=== PATIENT | female | born 1975 | race Caucasian/White ===

== ENCOUNTER → 2019-12-29 09:14 | Outpatient (BNVA) | payer OTHER, SELFPAY | PROVIDERS: PCP Physician Assistant Medical; Visit Provider Student in an Organized Health Care Education/Training Program | DX: M25.50 Pain in unspecified joint (principal); M79.602 Pain in left arm; M79.605 Pain in left leg; E55.9 Vitamin D deficiency, unspecified | CPT/HCPCS: 99214 ==

== ENCOUNTER 2020-10-10 14:40 | Emergency (ER) | payer OTHER, SELFPAY ==
[2020-10-10 15:36] VITALS: BP 113/75; PULSE 98; RESP 18; TEMP 37; O2SAT 100; BMI 35.3
--- NOTE | 2020-10-10 16:49 | ED_ITS ---
HPI - Back Pain/Injury General Chief Complaint: Extremity Injury, Lower Stated Complaint: Rt leg pain Time Seen by Provider: 10/10/20 16:49 Source: patient Mode of arrival: ambulatory Limitations: no limitations History of Present Illness HPI Narrative: 45 y/o female with history of polyarthralgia (seen by Rheum with negative connective tissue disease workup in the past), chronic low back pain who presents with worsening nontraumatic pain for the last 2 weeks. She reports the pain starts in her left lower back and buttock area and radiates down the back of her leg. It is causing her not to sleep well at home. She is taking Tylenol and Gababpentin with only mild improvement. She saw her PCP who referred her to a specialist who she has not seen yet. She had a MRI of her lower back in the past that she reports showed some disc disease. She has no weakness, numbness, tingling. No fevers. MD elicited complaint: back pain Pertinent past history: prior back pain Onset (ago): week(s) (2) Timing: constant Similar Symptoms Previously: Yes Quality: sharp Location: left lower back Radiation: left upper leg Exacerbating factors: movement Relieving factors: immobilization Context: unknown Associated symptoms: difficulty walking Treatments prior to arrival: acetaminophen Work related injury: No Related Data Home Medications Medication Instructions Recorded Confirmed acetaminophen 500 mg tablet 500 mg PO Q6H PRN 12/29/19 (Tylenol Extra Strength) albuterol sulfate 2.5 mg INHALATION Q4H PRN 12/29/19 epinephrine 0.3 mg/0.3 mL 0.3 mg IM Q10M PRN 12/29/19 injection, auto-injector fluticasone furoate 200 1 inh INHALATION DAILY 12/29/19 mcg-vilanterol 25 mcg/dose inhalation powder (Breo Ellipta) gabapentin 800 mg tablet 800 mg PO DAILY 12/29/19 hydrochlorothiazide 25 mg tablet 25 mg PO DAILY 12/29/19 linaclotide 290 mcg capsule 290 mcg PO DAILY 12/29/19 (Linzess) loratadine 10 mg tablet (Allergy 10 mg PO DAILY 12/29/19 Relief (loratadine)) metoprolol tartrate 50 mg tablet 50 mg PO BID 12/29/19 montelukast 10 mg tablet 10 mg PO DAILY 12/29/19 ondansetron HCl 4 mg tablet 4 mg PO Q6H PRN 10/15/20 pantoprazole 40 mg tablet,delayed 40 mg PO DAILY 12/29/19 release prednisone 5 mg tablet 5 mg PO DAILY 12/29/19 tramadol 50 mg tablet 50 mg PO Q6H PRN 12/29/19 Previous Rx's Medication Instructions Recorded cyclobenzaprine 10 mg tablet 10 mg PO TID PRN #10 tab 10/10/20 lidocaine 5 % topical patch 1 patch TOPICAL DAILY #15 ea 10/10/20 (Lidoderm) oxycodone 5 mg tablet 5 mg PO Q8H PRN #5 tab 10/10/20 prednisone 20 mg tablet 40 mg PO DAILY #10 tab 10/10/20 Allergies Allergy/AdvReac Type Severity Reaction Status Date / Time aspirin [ASA] Allergy Severe ANAPHYLAXIS Verified 10/10/20 15:36 butalbital [From FIORICET] Allergy Severe ANAPHYLAXIS Verified 10/10/20 15:36 diazepam [DIAZEPAM] Allergy Severe ANAPHYLAXIS Verified 10/10/20 15:36 ibuprofen [From MOTRIN] Allergy Severe ANAPHYLAXIS Verified 10/10/20 15:36 levofloxacin [From LEVAQUIN] Allergy Severe ANAPHYLAXIS Verified 10/10/20 15:36 shellfish derived Allergy Severe ANAPHYLAXIS Verified 10/10/20 15:36 [SHELLFISH DERIVED] cyclobenzaprine Allergy Mild UNKNOWN Verified 10/10/20 15:36 [From FLEXERIL] acetaminophen [Fioricet] Allergy Unknown Unknown Verified 10/10/20 15:36 ampicillin [AMPICILLIN] Allergy Unknown UNKNOWN Verified 10/10/20 15:36 caffeine [Fioricet] Allergy Unknown unknown Verified 10/10/20 15:36 Aspir-81 Allergy Mild Unknown Uncoded 10/10/20 15:36 Clindamycin HCl Allergy Mild Rash Uncoded 10/10/20 15:36 Motrin Allergy Mild Unknown Uncoded 10/10/20 15:36 milk Allergy Unknown unknown Uncoded 12/29/19 09:37 shellfish Allergy Unknown Unknown Uncoded 12/29/19 09:37 stawberry Allergy Unknown Unknown Uncoded 12/29/19 09:37 Review of Systems Constitutional: Constitutional: Denies chills, Reports difficulty sleeping and Denies fever(s) Cardiovascular: Cardiovascular: Denies chest pain and Denies leg edema Gastrointestinal: Gastrointestinal: Denies abdominal pain Genitourinary: Genitourinary: Denies difficulty voiding, Denies urinary incontinence and Denies urinary urgency Musculoskeletal: Musculoskeletal: Reports abnormal gait, Reports back pain, Reports myalgias and Denies joint swelling Neurologic: Reports abnormal gait and Denies paresthesias [facility] Past Medical History Attestation statement: The following information was validated with the patient. Medical History Asthma Hypertension Leg pain Migraines Tachycardia Uterine prolapse Surgical History H/O: hysterectomy Social History Social History (Updated 12/29/19 @ 09:26 by Leonardo Weber LPN) Household Members: Family Housing: House Alcohol intake: never Advance Directives: No Advance Directives Information Provided: Yes Patient : No Physical Exam Vital Signs: Vital Signs: Last Vital Signs Temp 98.6 F 10/10/20 15:36 Pulse 98 10/10/20 15:36 Resp 18 10/10/20 15:36 BP 113/75 10/10/20 15:36 Pulse Ox 100 10/10/20 15:36 Body Mass Index 35.3 Const: General: cooperative, healthy appearing, comfortable and no acute distress HENMT: Head: Yes normal to inspection Ears: hearing grossly normal bilaterally General nose exam: Normal external nose present Face and sinus: Yes normal facial exam Eyes: General: appearance normal, both eyes and all related structures Neck: Neck: Yes normal visual inspection Chest: Chest palpation & inspection: normal inspection of the chest Resp: Effort & Inspection: normal respiratory effort and able to speak in complete sentences GI: Inspection: Yes normal to inspection Palpation (GI): Soft to palpation and nontender : General: Yes no CVA tenderness Back/Spine/Pelvis: Back: no CVA tenderness and back tenderness Cervical Spine: normal cervical lordosis Thoracic/Lumbar Spine: thoracic and lumbar spine normal to inspection Pelvis: buttock tenderness on the left Sacroiliac joints: on the left tender to palpation and by passive hyperextension of lower ext Sacrum: no tenderness Coccyx: no tenderness Skin: General skin exam: no rashes or lesions noted Neuro: Cognition (Neuro): normal cognition Gait exam (Neuro): Antalgic gait present Motor exam (neuro): 5/5 motor strength present throughout Extrem: General: Yes normal to inspection Course Course Course Narrative: 45 y/o female presenting with acute on chronic low back pain. Clinical presentation and symptoms are consistent with sciatica. She is due to see a specialist for this soon. She has no red flag symptoms of LBP. She has been taking Tylenol and Gababpentin with little relief. Cannot take NSAIDS. Will treat with short course of prednisone, Flexeril and lidoderm. PRN oxycodone for severe pain and night not allowing her to sleep. She was encouraged to follow up with her PCP again for further management and possible PT referral. She agrees with plan. Stable for d/c home. Discharge Plan Discharge Clinical Impression: Sciatica of left side Patient Disposition: Home, Self-Care Instructions: Sciatica (ED), Lower Back Exercises (ED) Additional Instructions: No bending, lifting or twisting. Use ice several times per day for 20 minutes at a time for the next 48 hours and then change to heat. Take medications as prescribed to help with pain and discomfort. Follow up with your Primary Care Doctor this week as well as the specialist they referred you to. If your pain worsens, if you develop new numbness, tingling, weakness, loss of function or incontinence call 911 or come back to the ER right away for evaluation. Prescriptions: New prednisone 20 mg tablet 40 mg PO DAILY Qty: 10 RF: 0 lidocaine [Lidoderm] 5 % adhesive patch,medicated 1 patch topical DAILY Qty: 15 RF: 0 cyclobenzaprine 10 mg tablet 10 mg PO TID PRN (Reason: muscle spasm) Qty: 10 RF: 0 oxycodone 5 mg tablet 5 mg PO Q8H PRN (Reason: pain) Qty: 5 RF: 0 No Action metoprolol tartrate 50 mg tablet 50 mg PO BID RF: 0 gabapentin 800 mg tablet 800 mg PO DAILY RF: 0 prednisone 5 mg tablet 5 mg PO DAILY RF: 0 pantoprazole 40 mg tablet,delayed release (DR/EC) 40 mg PO DAILY RF: 0 Linzess 290 mcg capsule 290 mcg PO DAILY RF: 0 loratadine [Allergy Relief (loratadine)] 10 mg tablet 10 mg PO DAILY RF: 0 montelukast 10 mg tablet 10 mg PO DAILY RF: 0 albuterol sulfate 2.5 mg /3 mL (0.083 %) solution for nebulization 2.5 mg inhalation Q4H PRNRF: 0 Breo Ellipta 200-25 mcg/dose blister with device 1 inh inhalation DAILY RF: 0 epinephrine 0.3 mg/0.3 mL auto-injector 0.3 mg IM Q10M PRNRF: 0 hydrochlorothiazide 25 mg tablet 25 mg PO DAILY RF: 0 tramadol 50 mg tablet 50 mg PO Q6H PRNRF: 0 ondansetron HCl 4 mg tablet 4 mg PO Q6H PRNRF: 0 acetaminophen [Tylenol Extra Strength] 500 mg tablet 500 mg PO Q6H PRNRF: 0 Interventions: ED Discharge Assessment Last Done: 10/10/20 17:20 Discharge Date/Time: 10/10/20 17:23 Print Language: Samoan
== END 2020-10-10 17:23 | disposition home or self-care (01) ==
PROVIDERS: Emergency Provider Emergency Medicine Emergency Medical Services; PCP Physician Assistant Medical
DX: M54.42 Lumbago with sciatica, left side (principal); I10 Essential (primary) hypertension
CPT/HCPCS: 99283

== ENCOUNTER 2020-11-15 13:27 | Outpatient (REF) | payer OTHER, SELFPAY ==
--- NOTE | ~2020-11-15 | MM_ITS ---
EXAMINATION: MM SCREENING DIGITAL BREAST TOMOSYNTHESIS, BILATERAL CLINICAL INFORMATION: Screening. Asymptomatic. The lifetime risk of breast cancer based on the Tyrer-Cuzick Model is 6%. COMPARISON: Outside mammography: 07/28/2018 ([facility]). TECHNIQUE: Digital breast tomosynthesis is performed in both the craniocaudal and mediolateral oblique views along with computer-aided detection (CAD). Synthesized 2D images are generated from the tomosynthesis. FINDINGS: There are scattered areas of fibroglandular density (ACR BI-RADS breast composition Category b). Breast tissue composition borders on predominantly fatty. Background stromal markings are stable. There is a small stable circumscribed nodule 1:00 position right breast, similar to prior exam. There is no significant mass or architectural abnormality or abnormal calcific lesions. The axilla and skin contours are unremarkable. MM/MM tomosynthesis screening BI IMPRESSION: No mammographic evidence of malignancy. ASSESSMENT: BI-RADS 2: Benign RECOMMENDATION: Routine annual mammography screening. This patient's information was entered into a reminder system with a target due date for their next mammogram.
== END 2020-11-15 13:28 | disposition home or self-care (01) ==
LOC: HO.MAMMO 13:27
PROVIDERS: PCP Physician Assistant Medical; Visit Provider Physician Assistant Medical
DX: Z12.31 Encounter for screening mammogram for malignant neoplasm of breast (principal)
CPT/HCPCS: 77063; 77067

== ENCOUNTER 2021-06-17 09:04 | Day surgery (SDC) | payer OTHER, SELFPAY ==
--- NOTE | 2021-06-13 14:30 | MHC.SHP ---
Pre-Procedural Eval Section A Date of Service: 06/13/21 The patient is an INPATIENT: No Changes since office visit: No Cold of Flu in the past 2 weeks, No New Medical Problems, No Changes in Medication and No Patient answered all questions The History & Physical has been completed within 30 days and I have reviewed it.: Yes Section B Chief Complaint: pterygium Allergies: Allergies Allergy/AdvReac Type Severity Reaction Status Date / Time aspirin [ASA] Allergy Severe ANAPHYLAXIS Verified 06/11/21 15:03 butalbital [From FIORICET] Allergy Severe ANAPHYLAXIS Verified 06/11/21 15:03 diazepam [DIAZEPAM] Allergy Severe ANAPHYLAXIS Verified 06/11/21 15:03 ibuprofen [From MOTRIN] Allergy Severe ANAPHYLAXIS Verified 06/11/21 15:03 levofloxacin [From LEVAQUIN] Allergy Severe ANAPHYLAXIS Verified 06/11/21 15:03 shellfish derived Allergy Severe ANAPHYLAXIS Verified 06/11/21 15:03 [SHELLFISH DERIVED] cyclobenzaprine Allergy Mild UNKNOWN Verified 06/11/21 15:03 [From FLEXERIL] ampicillin [AMPICILLIN] Allergy Unknown UNKNOWN Verified 06/11/21 15:03 caffeine [Fioricet] Allergy Unknown unknown Verified 06/11/21 15:03 Clindamycin HCl Allergy Mild Rash Uncoded 06/11/21 15:03 milk Allergy Unknown unknown Uncoded 06/11/21 15:03 stawberry Allergy Unknown Unknown Uncoded 06/11/21 15:03 Plan Diagnosis/Plan: Unchanged I have reviewed the history and physical and performed a pertinent physical examination on my patient. No changes have occurred unless specified.
[2021-06-13 15:11] VITALS: BMI 33.4
--- NOTE | 2021-06-14 10:44 | HO.ANESPROP2 ---
Documented by User: Lynn Lezama NP 06/14/21 10:47 HPI - Anesthesia Eval Consult details Narrative: 45yo F for Left PTERYGIUM EXCISION PCP cleared *Multiple Med Allergies* PMFSH Active Problems Active Problems: All Active Problems (Updated 06/13/21 @ 15:03 by Flori Ospina, RN) Polyarthralgia (Acute) Past Medical History Medical History (Updated 06/13/21 @ 15:03 by Flori Ospina, RN) Anxiety and depression Asthma Dysphagia Frequent headaches GERD (gastroesophageal reflux disease) Hiatal hernia Hypertension Leg pain Migraines On beta jr at home KOURTNEY on CPAP Tachycardia Uterine prolapse Surgical History Surgical History (Updated 06/13/21 @ 15:04 by Flori Ospina RN) H/O: hysterectomy History of esophagogastroduodenoscopy (EGD) History of pubovaginal sling Hx of section Hx of colonoscopy Social History Social History (Updated 12/29/19 @ 09:26 by Leonardo Weber LPN) Household Members: Family Housing: House Alcohol intake: never Patient Tobacco Use Status: Never used Tobacco Use of substances other than those prescribed or required for medical reasons: No Are you DNR?: No Advance Directives: No Advance Directives Information Provided: Yes Meds Allergies Allergy/AdvReac Type Severity Reaction Status Date / Time aspirin [ASA] Allergy Severe ANAPHYLAXIS Verified 06/11/21 15:03 butalbital [From FIORICET] Allergy Severe ANAPHYLAXIS Verified 06/11/21 15:03 diazepam [DIAZEPAM] Allergy Severe ANAPHYLAXIS Verified 06/11/21 15:03 ibuprofen [From MOTRIN] Allergy Severe ANAPHYLAXIS Verified 06/11/21 15:03 levofloxacin [From LEVAQUIN] Allergy Severe ANAPHYLAXIS Verified 06/11/21 15:03 shellfish derived Allergy Severe ANAPHYLAXIS Verified 06/11/21 15:03 [SHELLFISH DERIVED] cyclobenzaprine Allergy Mild UNKNOWN Verified 06/11/21 15:03 [From FLEXERIL] ampicillin [AMPICILLIN] Allergy Unknown UNKNOWN Verified 06/11/21 15:03 caffeine [Fioricet] Allergy Unknown unknown Verified 06/11/21 15:03 Clindamycin HCl Allergy Mild Rash Uncoded 06/11/21 15:03 milk Allergy Unknown unknown Uncoded 06/11/21 15:03 stawberry Allergy Unknown Unknown Uncoded 06/11/21 15:03 Home Medications Medication Instructions Recorded Confirmed Last Taken Type acetaminophen 500 mg tablet 500 mg PO Q6H PRN 12/29/19 06/11/21 Unknown History (Tylenol Extra Strength) albuterol sulfate 2.5 mg INHALATION Q4H PRN 12/29/19 06/11/21 Unknown History epinephrine 0.3 mg/0.3 mL 0.3 mg IM Q10M PRN 12/29/19 06/11/21 Unknown History injection, auto-injector fluticasone furoate 200 1 inh INHALATION DAILY 12/29/19 06/11/21 Unknown History mcg-vilanterol 25 mcg/dose inhalation powder (Breo Ellipta) gabapentin 800 mg tablet 800 mg PO DAILY 12/29/19 06/11/21 Unknown History hydrochlorothiazide 25 mg tablet 25 mg PO DAILY 12/29/19 06/11/21 Unknown History linaclotide 290 mcg capsule 290 mcg PO DAILY 12/29/19 06/11/21 Unknown History (Linzess) loratadine 10 mg tablet (Allergy 10 mg PO DAILY 12/29/19 06/11/21 Unknown History Relief (loratadine)) metoprolol tartrate 50 mg tablet 50 mg PO BID 12/29/19 06/11/21 Unknown History montelukast 10 mg tablet 10 mg PO DAILY 12/29/19 06/11/21 Unknown History ondansetron HCl 4 mg tablet 4 mg PO Q6H PRN 12/29/19 06/11/21 Unknown History pantoprazole 40 mg tablet,delayed 40 mg PO DAILY 12/29/19 06/11/21 Unknown History release tramadol 50 mg tablet 50 mg PO Q6H PRN 12/29/19 06/11/21 Unknown History albuterol sulfate 90 mcg/actuation 2 puff INHALATION Q4H PRN 06/11/21 06/11/21 Unknown History aerosol inhaler (ProAir HFA) doxepin 50 mg capsule 1 cap PO BEDTIME 06/13/21 06/13/21 Unknown History famotidine 40 mg tablet 1 tab PO DAILY 06/13/21 06/13/21 Unknown History ferrous sulfate 325 mg (65 mg 1 tab PO QAM 06/13/21 06/13/21 Unknown History iron) tablet fluticasone propionate 50 2 spray INTRANASAL QAM 06/13/21 06/13/21 Unknown History mcg/actuation nasal spray,suspension multivitamin (One Daily 1 tab PO DAILY 06/13/21 06/13/21 Unknown History Multivitamin) omeprazole 40 mg capsule,delayed 1 cap PO BEDTIME 06/13/21 06/13/21 Unknown History release Exam Exam Date and Time: June 14, 2021 1044 Height,Weight and Vital Signs: Height 5 ft 1 in Weight 80.286 kg Assessment and Plan Assessment Anesthesia Assessment: Chart Reviewed Documented by User: Billy Alvarado MD 06/17/21 12:34 [facility] Past Medical History Medical History (Updated 06/13/21 @ 15:03 by Flori Ospina RN) Anxiety and depression Asthma Dysphagia Frequent headaches GERD (gastroesophageal reflux disease) Hiatal hernia Hypertension Leg pain Migraines On beta jr at home KOURTNEY on CPAP Tachycardia Uterine prolapse Family History Family history of problems with anesthesia: No Surgical History Surgical History (Updated 06/13/21 @ 15:04 by Flori Ospina RN) H/O: hysterectomy History of esophagogastroduodenoscopy (EGD) History of pubovaginal sling Hx of section Hx of colonoscopy History of Problems with Anesthesia: No Social History Social History (Updated 12/29/19 @ 09:26 by Leonardo Weber LPN) Household Members: Family Housing: House Alcohol intake: never Patient Tobacco Use Status: Never used Tobacco Use of substances other than those prescribed or required for medical reasons: No Are you DNR?: No Advance Directives: No Advance Directives Information Provided: Yes Meds Allergies Allergy/AdvReac Type Severity Reaction Status Date / Time aspirin [ASA] Allergy Severe ANAPHYLAXIS Verified 06/11/21 15:03 butalbital [From FIORICET] Allergy Severe ANAPHYLAXIS Verified 06/11/21 15:03 diazepam [DIAZEPAM] Allergy Severe ANAPHYLAXIS Verified 06/11/21 15:03 ibuprofen [From MOTRIN] Allergy Severe ANAPHYLAXIS Verified 06/11/21 15:03 levofloxacin [From LEVAQUIN] Allergy Severe ANAPHYLAXIS Verified 06/11/21 15:03 shellfish derived Allergy Severe ANAPHYLAXIS Verified 06/11/21 15:03 [SHELLFISH DERIVED] cyclobenzaprine Allergy Mild UNKNOWN Verified 06/11/21 15:03 [From FLEXERIL] ampicillin [AMPICILLIN] Allergy Unknown UNKNOWN Verified 06/11/21 15:03 caffeine [Fioricet] Allergy Unknown unknown Verified 06/11/21 15:03 Clindamycin HCl Allergy Mild Rash Uncoded 06/11/21 15:03 milk Allergy Unknown unknown Uncoded 06/11/21 15:03 stawberry Allergy Unknown Unknown Uncoded 06/11/21 15:03 Home Medications Medication Instructions Recorded Confirmed Last Taken Type acetaminophen 500 mg tablet 500 mg PO Q6H PRN 12/29/19 06/11/21 Unknown History (Tylenol Extra Strength) albuterol sulfate 2.5 mg INHALATION Q4H PRN 12/29/19 06/11/21 Unknown History epinephrine 0.3 mg/0.3 mL 0.3 mg IM Q10M PRN 12/29/19 06/11/21 Unknown History injection, auto-injector fluticasone furoate 200 1 inh INHALATION DAILY 12/29/19 06/11/21 Unknown History mcg-vilanterol 25 mcg/dose inhalation powder (Breo Ellipta) gabapentin 800 mg tablet 800 mg PO DAILY 12/29/19 06/11/21 Unknown History hydrochlorothiazide 25 mg tablet 25 mg PO DAILY 12/29/19 06/11/21 Unknown History linaclotide 290 mcg capsule 290 mcg PO DAILY 12/29/19 06/11/21 Unknown History (Linzess) loratadine 10 mg tablet (Allergy 10 mg PO DAILY 12/29/19 06/11/21 Unknown History Relief (loratadine)) metoprolol tartrate 50 mg tablet 50 mg PO BID 12/29/19 06/11/21 Unknown History montelukast 10 mg tablet 10 mg PO DAILY 12/29/19 06/11/21 Unknown History ondansetron HCl 4 mg tablet 4 mg PO Q6H PRN 12/29/19 06/11/21 Unknown History pantoprazole 40 mg tablet,delayed 40 mg PO DAILY 12/29/19 06/11/21 Unknown History release tramadol 50 mg tablet 50 mg PO Q6H PRN 12/29/19 06/11/21 Unknown History albuterol sulfate 90 mcg/actuation 2 puff INHALATION Q4H PRN 06/11/21 06/11/21 Unknown History aerosol inhaler (ProAir HFA) doxepin 50 mg capsule 1 cap PO BEDTIME 06/13/21 06/13/21 Unknown History famotidine 40 mg tablet 1 tab PO DAILY 06/13/21 06/13/21 Unknown History ferrous sulfate 325 mg (65 mg 1 tab PO QAM 06/13/21 06/13/21 Unknown History iron) tablet fluticasone propionate 50 2 spray INTRANASAL QAM 06/13/21 06/13/21 Unknown History mcg/actuation nasal spray,suspension multivitamin (One Daily 1 tab PO DAILY 06/13/21 06/13/21 Unknown History Multivitamin) omeprazole 40 mg capsule,delayed 1 cap PO BEDTIME 06/13/21 06/13/21 Unknown History release Exam Airway Mallampati Class: II TM Dist: >3cm Neck ROM: Full Partial: Upper Loose/Missing/Broken Teeth: Yes Heart: [id number] Lungs: cta b/l Assessment and Plan Assessment Anesthesia Assessment: Anesthesia Plan Discussed Final Anesthetic Review Family History of Problems with Anesthesia: No History of Problems with Anesthesia: No NPO: Yes ASA Class: II Final Preanesthetic Review: No Changes in Pt Med Stat, Meds/Allgs Chart Reviewed, Consent Obtained/Reviewed and Anes Risks/Benef Reviewed Patient Risk: Intermediate Procedure Risk: Low Assessment/Block/Sedation in SS: Assess/Block/Sedation-SS Anesthetic Plan Anesthetic Plan: MAC: and Agree w/ Assess. and Plan Disposition: Standard PACU
[2021-06-17 10:11] VITALS: BP 117/70; PULSE 81; RESP 18; TEMP 36.3; O2SAT 99
[2021-06-17] MEDS: Lactated Ringers 500 ML 50 ML IV (10:17)
--- NOTE | 2021-06-17 13:41 | P.PCNO_ITS ---
Ophthalmology Procedure Procedure Date of Service: 06/17/21 Ophthalmology Viscoelastic: Not Applicable Ophthalmology Lenses: Not Applicable Procedure Notes: PREOPERATIVE DIAGNOSIS: Pterygium left eye POSTOPERATIVE DIAGNOSIS: Same PROCEDURE: Pterygium resection with conjunctival graph left eye SURGEON: Temo Patrick M.D. ANESTHESIA: Topical/MAC ESTIMATED BLOOD LOSS: None COMPLICATIONS: None After obtaining informed consent, the patient was brought to the operating room suite and placed in supine position. After adequate sedation per Anesthesia, topical drops of Tetracaine were given to the left eye. The eye was then prepped and draped in the usual sterile fashion. Attention was directed to the left eye where a lid speculum was placed. Tetracaine was instilled topically, followed by subconjunctival injections of Lidocaine below the pterygium and below the rosales perior conjunctiva where the graft was to be harvested from. Utilizing a combination of sharp and blunt dissection with Mulu scissors, the pterygium was resected from the cornea, as well as the bulbar conjunctiva. A graft was then harvested from the superior site and placed in the conjunctival bed. It was sutured in place with 7-0 Vicryl sutures in a running fashion. Attention was directed superiorly where the graft harvest site was closed with additional 7-0 Vicryl interrupted sutures. Antibiotic ointment was instilled into the cul de sac. The lid speculum was removed. The patient tolerated the procedure well and will be followed up.
[2021-06-17 14:51] VITALS: BP 119/61; PULSE 83; RESP 12; TEMP 36.7; O2SAT 100
[2021-06-17] MEDS: Acetaminophen 325 MG TABLET 650 MG PO (14:55)
[2021-06-17 15:05] VITALS: BP 112/72; PULSE 87; RESP 16; O2SAT 98
== END 2021-06-17 15:21 | disposition home or self-care (01) ==
PROVIDERS: PCP Physician Assistant Medical; Visit Provider Ophthalmology
PROC: (CPT 65426; principal; 2021-06-17 13:40)
DX: H11.002 Unspecified pterygium of left eye (principal); Z83.511 Family history of glaucoma; I10 Essential (primary) hypertension; G43.909 Migraine, unspecified, not intractable, without status migrainosus; G47.33 Obstructive sleep apnea (adult) (pediatric); I47.1 Supraventricular tachycardia; J45.909 Unspecified asthma, uncomplicated; Z79.51 Long term (current) use of inhaled steroids; Z79.899 Other long term (current) drug therapy; Z88.8 Allergy status to other drugs, medicaments and biological substances
CPT/HCPCS: 65426; 88304; J2250; J3010

== ENCOUNTER 2022-02-25 08:07 | Outpatient (RCR) | payer OTHER, SELFPAY | END 2022-03-25 10:58 | disposition home or self-care (01) | LOC: HO.PT 08:07 | PROVIDERS: Visit Provider Surgery | DX: N81.6 Rectocele (principal) | CPT/HCPCS: 97112; 97162 ==